=== PATIENT | male | born 1930 | race Caucasian/White ===

== ENCOUNTER 2017-01-01 12:43 | Inpatient (IN) | payer MEDICARE, OTHER ==
[~2017-01-01] VITALS: Ht 177.8 cm; Wt 94.8 kg
[2017-01-01] MEDS ORDERED: SODIUM CHLORIDE FLUSH 10ML SYR IVF ONE (13:30)
[2017-01-01 14:09] LABS: BLOOD UREA NITROGEN 54 mg/dL (7-18)
[2017-01-01] MEDS ORDERED: SIMV40TA3 PO (14:21)
[2017-01-01] MEDS ORDERED: VERA240C2 PO (14:21)
[2017-01-01] MEDS ORDERED: PANT40TA5 PO (14:21)
[2017-01-01] MEDS ORDERED: LOSA100T6 PO (14:21)
[2017-01-01 14:23] LABS: IS PT STATUS REG ER OR PRE ER? YES
[2017-01-01] MEDS ORDERED: SODIUM CHLORIDE FLUSH 10ML SYR IVF PRN (15:30)
[2017-01-01 16:29] LABS: PATH.CAST-FLAG NOT PRESENT; SPERM-FLAG NOT PRESENT; SRC-FLAG NOT PRESENT; XTAL-FLAG NOT PRESENT; YLC-FLAG NOT PRESENT
[2017-01-01] MEDS ORDERED: ACETAMINOPHEN 325 MG TABLET PO PRN (16:30)
[2017-01-01] MEDS ORDERED: DOCUSATE 100 MG CAPSULE PO PRN (16:30)
[2017-01-01] MEDS ORDERED: ONDANSETRON 2MG/ML, 2ML IVPush PRN (16:30)
[2017-01-01] MEDS ORDERED: BISACODYL 10 MG SUPP PR PRN (16:30)
[2017-01-01] MEDS ORDERED: ONDANSETRON ODT 4 MG PO PRN (16:30)
[2017-01-01] MEDS: HEPARIN 5,000 UNITS/ML, 1ML SQ SCH (16:30)
[2017-01-01 17:09] LABS: TOTAL IRON BINDING CAPACITY 278 mcg/dL (250-450)
[2017-01-01] MEDS ORDERED: PHARMACY MAY ADJ FOR RENAL FX MC PRN (17:30)
[2017-01-01 17:36] LABS: TRANSFERRIN 222 mg/dL (200-360)
[2017-01-01] MEDS: SODIUM CHLORIDE 0.9% 1,000 ML IV SCH (18:15)
[2017-01-01 20:16] LABS: IS PT STATUS REG ER OR PRE ER? NO
[2017-01-01 21:00] VITALS: BP 170/82
[2017-01-02] MEDS: SODIUM CHLORIDE 0.9% 1,000 ML IV SCH (01:39)
[2017-01-02] MEDS: HEPARIN 5,000 UNITS/ML, 1ML SQ SCH ×2 (01:39→11:41)
[2017-01-02 02:00] VITALS: BP 159/65
[2017-01-02 05:16] LABS: BLOOD UREA NITROGEN 44 mg/dL (7-18)
[2017-01-02 09:00] VITALS: BP_SYST 165; BP_SYST 172; BP_SYST 175; BP_DIAS 65; BP_DIAS 79; BP_DIAS 83
[2017-01-02] MEDS ORDERED: VERAPAMIL ER 240MG TABLET.ER PO SCH (09:00)
[2017-01-02] MEDS ORDERED: PANTOPROZOLE 40MG TABLET PO SCH (09:00)
[2017-01-02 14:33] VITALS: BP 108/80
[2017-01-02] MEDS ORDERED: ERGO500017 PO (16:48)
[2017-01-02] MEDS ORDERED: DOCU-30 PO (16:48)
[2017-01-02] MEDS ORDERED: FERR325T20 PO (16:48)
[2017-01-02] MEDS ORDERED: ASCO500T8 PO (16:48)
== END 2017-01-02 18:45 | disposition home or self-care (01) | DRG 683 ==
LOC: ED 14:13 → EDIP 15:22 → 4EST 19:22
PROVIDERS: ADMIT Internal Medicine; ATTEND Internal Medicine
DX: N17.0 Acute kidney failure with tubular necrosis (principal); E87.2 Acidosis; E44.1 Mild protein-calorie malnutrition; K21.9 Gastro-esophageal reflux disease without esophagitis; I12.9 Hypertensive chronic kidney disease with stage 1 through stage 4 chronic kidney disease, or unspecified chronic kidney disease; N18.9 Chronic kidney disease, unspecified; D50.0 Iron deficiency anemia secondary to blood loss (chronic); D63.1 Anemia in chronic kidney disease; D75.89 Other specified diseases of blood and blood-forming organs; G62.9 Polyneuropathy, unspecified; M54.9 Dorsalgia, unspecified; E78.5 Hyperlipidemia, unspecified; G89.29 Other chronic pain; Z87.891 Personal history of nicotine dependence; Z68.30 Body mass index [BMI] 30.0-30.9, adult
CPT/HCPCS: 36415; 71010; 76770; 80048; 81001; 82040; 82306; 82436; 82550; 82570; 82607; 82728; 82746; 83036; 83540; 83550; 83735; 83880; 84100; 84133; 84300; 84443; 84466; 84484; 85025; 93005; 93306; 99285; J1644; J7030